=== PATIENT | female | born 1960 | race Caucasian/White ===

== ENCOUNTER → 2017-05-26 | Day surgery (SDC) | payer SELFPAY ==
[2012-01-27 09:40] VITALS: BP 132/70
[~2017-05-26] MED LIST: ADDAPRIN200 MG PO; ALBUTEROL0.09 MG/A4 IH; CELEXA20 MG PO; CEPHALEXIN250 M1 PO; JOINT BOOST1 TA1 PO; MUCINEX 60600 MG/TA1 PO; PEPCID 20MG TAB20 MG PO; PREDNISONE20 MG PO; PRENATAL1 TA1 PO; TYLENOL/CODEINE1 ML PO; ZITHROMAX 250M250 MG PO
== END ==
LOC: MSO 08:57
DX: D03.61 Melanoma in situ of right upper limb, including shoulder (principal); J45.909 Unspecified asthma, uncomplicated; Z87.891 Personal history of nicotine dependence; F32.9 Major depressive disorder, single episode, unspecified
CPT/HCPCS: A6402

== ENCOUNTER → 2024-04-16 | Outpatient (CLI) | payer SELFPAY ==
[2024-04-16 11:47] LABS: BASO # 0.02 K/mm3 (0.02-0.10); EOS # 0.15 K/mm3 (0.04-0.40); EOS % 1.7 % (1.0-5.0); HEMATOCRIT 42.4 % (37.0-47.0); HEMOGLOBIN 14.3 g/dL (12.5-16.0); LYMPH# 2.39 K/mm3 (1.50-4.00); MEAN CELL VOLUME 92 fl (78-100); MEAN CORPUSCULAR HEMOGLOBIN 31 pg (27-31); MEAN CORPUSCULAR HGB CONC 34 g/dL (33-37); MEAN PLATELET VOLUME 8.4 fl (7.4-10.4); MONO # 0.39 K/mm3 (0.20-0.80); NEU # 5.78 K/mm3 (1.40-6.50); PLATELET COUNT 335 K/mm3 (130-400); RED BLOOD COUNT 4.62 M/mm3 (4.10-5.30); RED CELL DISTRIBUTION WIDTH 14.3 % (11.5-14.5); WHITE BLOOD COUNT 8.8 K/mm3 (4.8-10.8)
[2024-04-16 11:55] LABS: CALCIUM 9.6 mg/dL (8.3-10.5)
[2024-04-16 11:57] LABS: TOTAL PROTEIN 6.8 g/dL (6.2-8.1)
[2024-04-16 11:59] LABS: TOTAL BILIRUBIN 0.7 mg/dL (0.2-1.2)
== END ==
LOC: LAB 11:32
PROVIDERS: Physician Assistant
DX: Z13.29 Encounter for screening for other suspected endocrine disorder (principal); Z13.1 Encounter for screening for diabetes mellitus; I10 Essential (primary) hypertension; K90.9 Intestinal malabsorption, unspecified; E78.5 Hyperlipidemia, unspecified